=== PATIENT | male | born 1985 ===

== ENCOUNTER 2023-12-10 18:43 | Inpatient (IN) | payer OTHER, SELFPAY ==
[2023-12-10] VITALS (8 sets, daily range): BP systolic 121–147; BP diastolic 75–102; PULSE 82–93; BMI 31.7; BMI 31.8
--- NOTE | 2023-12-10 16:18 | ED.GENMED ---
History of Present Illness
General
Chief Complaint: Fainting Sensation
Source: patient
Exam Limitations: none
Time Seen by Provider: 12/10/23 15:55
Travel History
Have you had any contact with someone who has COVID-19?: No
Do you have any symptoms of coronavirus? Fever > 100 degrees, chills, cough, shortness of breath, sore throat, loss of taste or smell, muscle aches, or headache?: No
History of Present Illness
History of Present Illness:
38-year-old male otherwise healthy presents after syncopal episode while sitting eating lunch at work. 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 He developed a period of time where he was experiencing racing thoughts had started not feeling well he put his food
down then he passed out per his coworkers. He hit the floor with the back of his head. He notes slight soreness to his head. He denies any preceding or chest pain following the episode. He remembers waking up on the floor talking to his
coworkers. There is no incontinence. No other current
Phy Exam
Physical Exam
Physical Exam:
General: Well-appearing male no acute respiratory distress
HEENT: Normocephalic atraumatic pupils equal round reactive to light TMs normal tongue is symmetric no bite rowe
Heart: Regular rate and rhythm no murmurs
Extremities: No cyanosis or edema
Skin: Warm no rash or lesion
Neurologic: Alert and oriented x 3 no facial asymmetry or slurred speech
Musculoskeletal exam: Cervical spine is nontender to palpation
Course
Orders/Labs/Results
Orders:
Orders
12/10/23 15:10
Electrocardiogram (*1) Urgent
Reason for Study: Syncope
EKG- Treatment ONCE
12/10/23 16:10
CT Head W/o Iv Contrast Urgent
Comment:
Reason For Exam: fall, syncope
12/10/23 16:42
Complete Blood Count/With Diff Urgent
Comprehensive Metabolic Panel Urgent
TSH Reflex To Free T4 Urgent
Abnormal Lab Results
12/10/23
16:42
Glucose 109 H mg/dl
(70-99)
12/10/23 16:42
12/10/23 16:42
Vital Signs
Initial and Last Documented VS:
Initial Vital Signs
Temp Pulse Resp BP Pulse Ox
98.2 F 89 18 144/102 98
12/10/23 15:08 12/10/23 15:08 12/10/23 15:08 12/10/23 15:08 12/10/23 15:08
Last Documented Vital Signs
Temp Pulse Resp BP Pulse Ox
98.2 F 82 19 131/80 98
12/10/23 15:08 12/10/23 17:00 12/10/23 17:00 12/10/23 17:00 12/10/23 17:00
MDM/Problems Addressed
Differential Diagnosis Includes:
Syncope. Vasovagal vs arrhythmia. EKG pending. Patient did hit his head. CT of the head pending. He feels back to baseline at this time. Do not suspect seizure
*Critical Care Note
Total Time (30-74mins, 75-104mins- exclusive of procedures): Not Applicable
Update Note
Update Note:
Patient did have a pause on the ekg monitor while hooked up. He was symptomatic during this episode including lightheadedness however there was no full syncopal episode. Labs were reviewed and without significant finding. CT of the head
without acute finding. Discussed findings with cardiology who recommended patient be admitted to the medicine service for further workup. Hospitalist made aware
ED Attending Note
-
Portions of this chart may have been created with voice recognition software.� Occasional wrong word or��sound alike� substitutions may have occurred due to the inherent limitations of voice recognition software.
Discharge Plan
Departure
Patient Disposition: Admit
Date of Disposition: 12/10/23
Time of Disposition: 17:54
Admit to: Telemetry
Presentation/result/management discussed w/ accepting MD/DO: Hospitalist
Discharge Problem:
Syncope
Prescriptions:
No Action
multivitamin Tablet
1 tab PO HS
Referrals:
Williams Pickard MD [Family Provider] -
Interventions
Interventions:
*Risk Screen - Suicide Last Done: 12/10/23 15:09
*General Assessment Last Done: 12/10/23 15:09
*Neglect/Abuse Screening Last Done: 12/10/23 15:09
*ED COVID-19 Vaccine History Last Done: 12/10/23 15:09
ED- Cardiac Assessment Last Done: 12/10/23 16:36
ED- Neurological Assessment Last Done: 12/10/23 16:24
[2023-12-10 16:52] LABS: % Basophils 0.3 % (0-2); % Eosinophils 2.1 % (0-6); % Immature Granulocytes 0.3 % (0-0.5); % Lymphocytes 25.1 % (20.5-51.1); % Monocytes 6.1 % (1.7-9.3); % Neutrophils 66.1 % (42.2-75.2); Absolute Eosinophils 0.2 10^3/uL (0-0.7); Absolute Lymphocytes 2.5 10^3/uL (1.2-3.4); Absolute Monocytes 0.6 10^3/uL (0.1-0.6); Absolute Neutrophils 6.5 10^3/uL (1.4-6.5); Hematocrit 41.4 % (39.0-52.0); Hemoglobin 14.9 g/dL (13.0-18.0); Mean Corpuscular Hgb 29.7 pg (27.0-31.0); Mean Corpuscular Volume 82.6 fL (80.0-94.0); Mean Platelet Volume 9.7 fL (7.4-10.4); Nucleated Red Blood Cells % 0 % (-); Platelet Count 209 10^3/uL (130-400); Red Blood Cell Count 5.01 10^6/uL (4.70-6.10); Red Cell Dist. Width 12.9 % (11.5-14.5); White Blood Cell Count 9.9 10^3/uL (4.8-10.8)
[2023-12-10 17:11] LABS: ALT (SGPT) 25 U/L (0-50); AST (SGOT) 38 U/L (17-59); Albumin 4.7 g/dl (3.5-5.0); Alkaline Phosphatase 78 U/L (38-126); Blood Urea Nitrogen 11 mg/dl (9-20); Calcium 9.3 mg/dl (8.4-10.2); Carbon Dioxide 28 mmol/L (22-30); Chloride 104 mmol/L (98-107); Glucose 109 mg/dl (70-99); Potassium 4.2 mmol/L (3.5-5.1); Sodium 138 mmol/L (135-145); Total Bilirubin 0.6 mg/dl (0.2-1.3); Total Protein 7.6 g/dl (6.3-8.2); eGFR > 60.00
[2023-12-10 17:38] LABS: TSH Reflex To Free T4 1.42 uIU/ml (0.47-4.68)
--- NOTE | 2023-12-10 18:34 | HPS.HSE ---
Addendum entered and electronically signed by Helen Cruz MD 12/10/23 18:45:
I saw and examined the patient.
The OBSTETRICS GYNECOLOGY PHYSICIAN's note was reviewed and I agree with the note.
Comment:
38 year old male without significant PMH who presented with syncopal episode at lunch at work today. He has a history of panic attacks but this felt different.
In the ED, patient was noted to have a 3 second pause on bus monitor.
A/P:
# Syncope likely cardiogenic with 3 second pause captured on telemetry in ED
Consult Cardiology
Monitor on Telemetry
Check Echo
Check Orthostatic VS
# h/o panic attack
mood stable
DVT proph: SCDs
Code Status: Full Code
Original Note:
Family Physician
-
Family Physician: Williams Pickard
Chief Complaint
-
Syncope
History of Present Illness
Patient is a 38 year old male without significant PMH who presented to the ED following a syncopal episode earlier today. Patient says he was at work eating lunch when he started to feel 'disoriented' and a 'sinking feeling' throughout his body.
Next thing we knew he was on the ground with his coworkers surrounding him. His coworker says he became very stiff and fell to the ground but was not shaking. Patient says he was confused when he woke up and denies feeling tired or lethargic after
the episode. He admits to episodes of this same feeling of disorientation every couple days over the past month but this is the first time he has passed out. He has a history of panic attacks but says this is unlike a panic attack. He denies
palpitations, dizziness, chest pain, shortness of breath, or headache during or prior to these episodes. While in the ED patient developed recurrent 'sinking feeling'. During this episode a 3 second pause was capture on bus monitor.
Medical History
Past Medical History
Past Medical History: Reports Other
Additional Past Medical History:
Anxiety
Past Surgical History: Reports None and Other
Social History
Tobacco: Non-smoker
Alcohol: None
Drug: Marijuana
Family History
Family History: Not pertinent
Allergies / Home Medications
Allergies reflects when Allergies were last updated in [facility].
Home Medications with original date entered in [facility]
Allergy/Medication List:
Allergies
Allergy/AdvReac Type Severity Reaction Status Date / Time
No Known Allergies Allergy Unverified 12/10/23 15:09
Home Medications
multivitamin 1 tab PO HS 12/10/23
Review of Systems
-
A 12 point ROS was completed and negative except as noted: Yes
Constitutional: Denies Fever or Chills
Respiratory: Denies Cough or Trouble Breathing
Cardiac: Denies Chest Pain or Palpitations
Physical Exam
Vital Signs
Vital Signs
Temp Pulse Resp BP Pulse Ox
98.2 F 82 23 122/82 98
12/10/23 15:08 12/10/23 18:15 12/10/23 18:15 12/10/23 18:00 12/10/23 18:15
Physical Exam
General: Comfortable and Conversant
HEENT: Anicteric and Moist mucous membranes
Respiratory: Clear and Non Labored Respirations
Cardiac: S1/S2 and Regular Rhythm
GI: Soft and Non Tender
Rectal: Other
Musculoskeletal: No Clubbing, No Cyanosis and No Edema
Skin: Warm and Dry
Neuro: Awake, Alert, Oriented and Nonfocal/grossly intact
Psych: Calm
Laboratory Results
-
12/10/23 16:42
12/10/23 16:42
Laboratory Results
Total Bilirubin 0.6 mg/dl (0.2-1.3) 12/10/23 16:42
AST 38 U/L (17-59) 12/10/23 16:42
ALT 25 U/L (0-50) 12/10/23 16:42
Alkaline Phosphatase 78 U/L (38-126) 12/10/23 16:42
Data Reviewed
-
Lab Data: Labs Reviewed by me
Impression/Plan
-
Syncope - 3 second pause captured on telemetry in ED
-Consult Cardiology
-Monitor on Telemetry
-Check Echo
-Check Orthostatic VS
DVT proph: SCDs
Code Status: Full Code
[2023-12-10] MEDS: NSS 1000 IV (21:04)
[2023-12-10] MEDS: TUMS 1 TABLET PO (22:26)
[2023-12-11 03:35] VITALS: BP 118/74
[2023-12-11 05:48] LABS: Hematocrit 43.3 % (39.0-52.0); Mean Corp Hgb Conc. 34.6 g/dL (33.0-37.0); Mean Corpuscular Hgb 29.6 pg (27.0-31.0); Mean Corpuscular Volume 85.4 fL (80.0-94.0); Mean Platelet Volume 9.9 fL (7.4-10.4); Platelet Count 194 10^3/uL (130-400); Red Blood Cell Count 5.07 10^6/uL (4.70-6.10); Red Cell Dist. Width 13.1 % (11.5-14.5); White Blood Cell Count 7.6 10^3/uL (4.8-10.8)
[2023-12-11 06:13] LABS: Blood Urea Nitrogen 11 mg/dl (9-20); Calcium 9.2 mg/dl (8.4-10.2); Carbon Dioxide 26 mmol/L (22-30); Chloride 103 mmol/L (98-107); Estimated Creatinine Clearance > 125 ml/min; Glucose 106 mg/dl (70-99); Potassium 4.4 mmol/L (3.5-5.1); Sodium 138 mmol/L (135-145); eGFR > 60.00
[2023-12-11 07:00] VITALS: BP 118/81
--- NOTE | 2023-12-11 07:22 | CON.CAR ---
Consultation
Consultation Request
Date/Time Consultation Requested: December 11, 2023
Date/Time Consultation Performed: December 11, 2023
Requesting Provider: Hospitalist
Performing Provider: Karen
Reason for Consultation: Syncope
Medical History
-
Chief Complaint: Syncope
History of Present Illness:
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 Per history from his coworker secondhand there was no seizure-like activity. For the last month he has had lightheadedness dizziness which has a prodrome of
racing thoughts and mind racing. In the ER here he had a 3-second sinus pause with P-P slowing suggesting vagal mechanism. In retrospect he has had a lifelong history since teenage years of near blacking out while standing. Former [employer] with
intense calisthenics or long periods of work he would have near blacking out while standing. Typically gets these while sitting and standing has not had any episodes of syncope or presyncope while driving. He does not arc [place]. He has not had
prior cardiac testing.
He recently gave up caffeine and energy drinks about 2 weeks ago. He does not drink alcohol.
No family history coronary artery disease, no family history of sudden cardiac .
He typically has reasonable amounts of insensible losses in terms of perspiration at work.
He typically drinks lemonade at work.
Today after a liter of IV fluid he feels much better and we went to the bathroom he had no lightheadedness or dizziness.
He had a 15 beat run of AIVR right bundle posterior fascicular source which was asymptomatic and during sleeping hours at approximately 610 to 620 ms.
Past Medical History
Past Medical History: Arrhythmias
Past Surgical History: None
Social History
Tobacco: Non-Smoker
Alcohol: None
Drug: None
Personal: Single
Living: Other
Employment: Employed
Family History
Family History: Reviewed & Not Pertinent
Allergies / Home Medications
Allergy/AdvReac Type Severity Reaction Status Date / Time
No Known Allergies Allergy Unverified 12/10/23 15:09
Medication Instructions Recorded Confirmed Type
multivitamin 1 tab PO HS 12/10/23 12/10/23 History
Review of Systems
-
History Source: Patient
All other systems: Negative unless noted
Physical Exam
Vital Signs
Temp Pulse Resp BP Pulse Ox
97.7 F 82 18 118/74 97
12/11/23 03:35 12/11/23 03:35 12/11/23 03:35 12/11/23 03:35 12/11/23 03:35
Lab Results
12/11/23 05:20
12/11/23 05:20
Physical Exam
General: Well Developed and Well Nourished
HEENT: Normocephalic and Anicteric
Respiratory: Clear
Cardiac: S1/S2 and Regular Rhythm
Breast: Deferred by me
GI: Soft, Non Tender and Non Distended
Rectal: Deferred by Provider
Genito-urinary: Other
Musculoskeletal: No Clubbing and No Cyanosis
Skin: Warm and Dry
Neuro: Awake, Alert and Oriented
Hematologic/Lymphatic: No Lymphadenopathy
Psych: Calm
Impression / Plan
-
Impression:
Sinus bradycardia
AIVR
Syncope�vasovagal mechanism
Per patient history of sodium deficiency
Glucose intolerance
Recommend:
-Increase IV hydration and p.o. hydration. Would complete the second liter of IV fluids.
-I have no objection to discharge later today
-There is no current indication for permanent pacemaker
-We discussed at length mechanism of vasovagal syncope with the need for adequate hydration with electrolyte rich solution, relaxation of salt restrictions in the diet, behavioral and positional training, caffeine alcohol and energy drink avoidance,
and the need to return to the emergency room if he has repetitive syncope. We also discussed light duty for the next 3 to 4 days and he is agreeable. He has not had syncope during driving so I would allow him to continue work and driving at this
time. He understands that if he has any events during driving that he would have a restriction.
-I did recommend outpatient neurologic final follow-up given the prodrome that he is experiencing with thought racing prior to the syncopal event. The neurologic evaluation would be to rule out atypical seizure
-Our office will contact him for outpatient echocardiogram and 7-day [place] monitor to monitor how he is faring with the increased hydration and will have an electrophysiology visit with either myself or one of my partners after testing.
Data Reviewed
-
EKG: Tracing Personally Visualized and interpreted
Radiology: Image Personally Visualized and interpreted
Labs: Labs Reviewed by me
Old Records: Reviewed
--- NOTE | 2023-12-11 10:41 | W.PN.HOSP.TC ---
Addendum entered and electronically signed by Helen Cruz MD 12/11/23 13:02:
total DC time 35 min
Original Note:
Today's Communication/Plan
-
DC home today
Assessment / Plan
Assessment / Plan
38 year old male without significant PMH who presented with syncopal episode at lunch at work today. He has a history of panic attacks but this felt different.
In the ED, patient was noted to have a 3 second pause on compliance monitor.
A/P:
# Syncope likely vasovagal per pelt salter/EP
Although pauses noted on tele, it was still felt to be vasovagal per card. It is common to see short pauses with vasovagal syncope per card.
Cont IVF , encourage to keep well hydrated
Orthostatic VS neg
echo unrevealing: EF 55-60%. Normal diastolic function. No valvular disease.
Appreciate Cardiology input , OK for discharge
# h/o panic attack
mood stable
DVT proph: SCDs
Code Status: Full Code
DW extensively with pelt salter today
DW at bedside
Anticipated Discharge: Today
Subjective/Interval History
-
Date of Service: December 11, 2023
Objective Data
-
Labs:
Laboratory Results
12/11/23
05:20
WBC 7.6
Hgb 15.0
Hct 43.3
Plt Count 194
Sodium 138
Potassium 4.4
Chloride 103
Carbon Dioxide 26
BUN 11
Creatinine 0.9
Glucose 106 H
Calcium 9.2
Vital Signs:
Vital Signs
Temp Pulse Resp BP Pulse Ox
36.6 C 76 16 118/81 96
12/11/23 07:00 12/11/23 07:00 12/11/23 07:00 12/11/23 07:00 12/11/23 07:00
I&O
12/10/23 12/11/23 12/12/23
06:59 06:59 06:59
Intake Total 480 / 480
Balance 480 / 480
Review of Systems
-
All other systems: Reviewed and negative
Physical Exam
-
General: Well Developed, Well Nourished, No Apparent Distress, Comfortable and Conversant; Negative Respiratory Distress
HEENT: Normocephalic, Atraumatic, Nose Appears Normal and Ears Appear Normal; Negative Oxygen
Respiratory: Clear to Auscultation and Non Labored Respirations; Negative Accessory Resp Muscle Use
Cardiac: Regular Rhythm and S1/S2
GI: Soft, Nontender, Nondistended and Normal Bowel Sounds
Skin: Warm and Dry
Neuro: Awake, Alert, Oriented, AO x 3 and Nonfocal/Grossly Intact
Psych: Calm and Intact Judgement/Insight
Data Reviewed
-
Medical Tests (Nuc Med, Echo etc): Discussed with Physician (echo WNL per Card)
Labs: Labs Reviewed by me
[2023-12-11 11:00] VITALS: BP 137/78
--- NOTE | 2023-12-11 12:46 | W.DCSUMMARY ---
Discharge Summary
Discharge Data
Date of Admission: 12/10/23
Date of Discharge: 12/11/23
-
Pending Results: No
Hospital Course
Principal Diagnosis:
Syncope likely vasovagal
Chronic Diagnoses:�
History of panic attack, mood stable
Consultations:�
Cardiology
Procedures:�
None
Clinical course:�
This is a 38 year old male without significant past medical history who presented with syncopal episode at lunch at work. In the ED, patient was noted to have a 3 second pause on monitor technician.
Problem 1:
Syncope likely vasovagal per molder apprentice/EP.
Although pauses were noted on tele, it was still felt to be vasovagal per molder apprentice. Per molder apprentice, it is common to see short pauses with vasovagal syncope per card.�
He received IVF while in the hospital, and was encouraged to continue well hydrated after discharge.
His orthostatic vital sign was within normal limit.
His echocardiogram was unrevealing: EF 55-60%. Normal diastolic function. No valvular disease.
He was seen by cardiology and was cleared for discharge.
Discharge Plan
-
Patient Disposition: Home (Routine Discharge)
Discharge Diagnosis/Procedures: syncope likely vasovagal
Condition: Good
Diet: As tolerated
Activity: As tolerated
Driving Restrictions: As prior to admission
Referrals:
Williams Pickard MD [Family Provider] - in less than 1 week
Prescriptions:
Continued
multivitamin Tablet
1 tab PO HS
Discharge Orders:
Discharge Patient (As Directed); Ordered 12/11/23
Ordered By: Helen Cruz
--- NOTE | 2023-12-14 13:17 | HPS.HSE ---
Family Physician
-
Family Physician: Williams Pickard
Medical History
Allergies / Home Medications
Allergies reflects when Allergies were last updated in [facility].
Home Medications with original date entered in [facility]
Physical Exam
Vital Signs
Vital Signs
Temp Pulse Resp BP Pulse Ox
99.1 F 79 16 137/78 97
12/11/23 11:00 12/11/23 11:00 12/11/23 11:00 12/11/23 11:00 12/11/23 11:00
Laboratory Results
-
12/11/23 05:20
12/11/23 05:20
Laboratory Results
Total Bilirubin 0.6 mg/dl (0.2-1.3) 12/10/23 16:42
AST 38 U/L (17-59) 12/10/23 16:42
ALT 25 U/L (0-50) 12/10/23 16:42
Alkaline Phosphatase 78 U/L (38-126) 12/10/23 16:42
Impression/Plan
-
IMPRESSION:
PLAN:
== END 2023-12-11 14:06 | disposition home or self-care (01) | DRG 312 ==
LOC: 3 WEST ACU 18:43
PROVIDERS: Physician Assistant; Physician Assistant Medical; ADMITTING PHYSICIAN Internal Medicine; CONSULT PHYSICIAN Internal Medicine Cardiovascular Disease; EMERGENCY PHYSICIAN Emergency Medicine; FAMILY PHYSICIAN Family Medicine
DX: R55 Syncope and collapse (principal); F41.0 Panic disorder [episodic paroxysmal anxiety]
CPT/HCPCS: 70450; 80048; 80053; 83735; 84443; 85025; 85027; 93005; 93306; 99285